=== PATIENT | female | born 1990 | race Hispanic/Latino ===

== ENCOUNTER 2017-01-04 22:17 | Emergency (ER) | payer OTHER, SELFPAY ==
[2017-01-04] MEDS ORDERED: Acyclovir 400 mg Tablet ONE (22:55)
== END 2017-01-04 23:14 | disposition home or self-care (01) ==
LOC: NAV ERS 22:17
DX: A60.04 Herpesviral vulvovaginitis (principal)
CPT/HCPCS: 99283

== ENCOUNTER 2017-10-28 20:19 | Emergency (ER) | payer SELFPAY ==
[2017-10-28] MEDS ORDERED: Meclizine HCl 25 MG TAB ONE (20:50)
== END 2017-10-28 21:00 | disposition home or self-care (01) ==
LOC: NAV ERS 20:19
DX: H81.12 Benign paroxysmal vertigo, left ear (principal); Z79.899 Other long term (current) drug therapy
CPT/HCPCS: 99283